=== PATIENT | male | born 1955 | race American Indian/Alaskan Native ===

== ENCOUNTER 2018-09-28 02:48 | Inpatient (IN) | payer MEDICARE, OTHER ==
[2018-09-28] MEDS ORDERED: SOLU-Medrol IV ONE (03:06)
[2018-09-28] MEDS ORDERED: BENADRYL PO ONE (03:06)
[2018-09-28] MEDS ORDERED: PEPCID IV ONE (03:06)
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
[2018-09-28 03:56] LABS: Basophils # (Auto) 0.1 K/mm3 (0.0-0.1); Basophils % (Auto) 1.8 % (0.0-1.8); Eosinophils # (Auto) 0.8 K/mm3 (0.0-0.4); Eosinophils % (Auto) 10.2 % (0.0-4.3); Hematocrit 37.6 % (35.5-45.6); Hemoglobin 12.6 gm/dl (11.8-15.2); Lymphocytes # (Auto) 3.4 K/mm3 (1.2-5.4); Lymphocytes % (Auto) 43.9 % (13.4-35.0); Mean Corpuscular HGB Conc 33 % (32-34); Mean Corpuscular Volume 89 fl (84-94); Monocytes # (Auto) 0.7 K/mm3 (0.0-0.8); Monocytes % (Auto) 9.1 % (0.0-7.3); Platelet Count 286 K/mm3 (140-440); Red Blood Count 4.22 M/mm3 (3.65-5.03); Red Cell Distribution Width 17.6 % (13.2-15.2)
[2018-09-28 04:09] LABS: Calcium 9.2 mg/dL (8.4-10.2)
--- NOTE | 2018-09-28 04:53 | History and Physical Report ---
<CHUANCEY ROSARIO - Last Filed: 09/28/18 05:11> History of Present Illness Date of examination: 09/28/18 Date of admission: 09/27/2018 Chief complaint: Lip swelling History of present illness: Patient is a 63-year-old male with PMHx of CVA, DM type 2, HTN, PAD, left hearing loss who presents to the ER with complaint of lip swelling. Pt states that he noted his face was swollen when he woke up around 9.0 PM tonight, pt states that he started taking Lisinopril 2 weeks ago and he was doing fine. Patient states that earlier in the evening he noticed his heart was racing, but he didn't notice his face and his lip swollen until aroound 9 pm. Patient reports difficulty speaking, he denies prior allergic reaction, he denies thighting of the throat, he denies SOB, denies cough, denies chest pain or palpitation, he states that he took Benadryl and decided to come to the ER for evaluation. Pt was se Past History Past Medical History: diabetes, hypertension Past Surgical History: Other (rifht finger amputation, right middle toe amp) Social history: lives with family, smoking Family history: no significant family history Medications and Allergies Allergies Allergy/AdvReac Type Severity Reaction Status Date / Time No Known Allergies Allergy Unverified 09/28/18 02:49 Home Medications Medication Instructions Recorded Confirmed Last Taken Type Ibuprofen [Motrin] 800 mg PO Q8HR PRN 09/28/18 09/28/18 Unknown History Lisinopril [Zestril] 5 mg PO QDAY 09/28/18 09/28/18 Unknown History Metformin HCl [metFORMIN] 1,000 mg PO QID 09/28/18 09/28/18 Unknown History Omeprazole 40 mg PO QDAY 09/28/18 09/28/18 Unknown History Rosuvastatin Calcium 40 mg PO QDAY 09/28/18 09/28/18 Unknown History hydroCHLOROthiazide [HCTZ] 50 mg PO QDAY 09/28/18 09/28/18 Unknown History Active Meds: Active Medications Enoxaparin Sodium (Lovenox) 30 mg SUB-Q QDAY ZONIA Review of Systems Ears, nose, mouth and throat: swelling in mouth Exam - Constitutional Vitals: Temp Pulse Resp BP Pulse Ox 97.7 F 105 H 18 104/63 96 09/28/18 02:52 09/28/18 02:52 09/28/18 02:52 09/28/18 03:45 09/28/18 03:45 General appearance: Present: no acute distress - EENT Eyes: Present: EOM intact ENT: hearing intact, other (left hearing loss) - Neck Neck: Present: supple, normal ROM - Respiratory Respiratory effort: normal Respiratory: bilateral: CTA - Cardiovascular Heart Sounds: Present: S1 & S2 - Extremities Extremities: no ischemia, No edema Peripheral Pulses: within normal limits - Abdominal General gastrointestinal: Present: non-tender, non-distended Male genitourinary: Present: deferred - Rectal Rectal Exam: deferred - Integumentary Integumentary: Present: warm, dry - Musculoskeletal Musculoskeletal: strength equal bilaterally - Psychiatric Psychiatric: cooperative - Neurologic Neurologic: moves all extremities Results - Labs CBC & Chem 7: 09/28/18 03:30 09/28/18 03:30 Labs: Laboratory Last Values WBC 7.7 K/mm3 (4.5-11.0) 09/28/18 03:30 RBC 4.22 M/mm3 (3.65-5.03) 09/28/18 03:30 Hgb 12.6 gm/dl (11.8-15.2) 09/28/18 03:30 Hct 37.6 % (35.5-45.6) 09/28/18 03:30 MCV 89 fl (84-94) 09/28/18 03:30 MCH 30 pg (28-32) 09/28/18 03:30 MCHC 33 % (32-34) 09/28/18 03:30 RDW 17.6 % (13.2-15.2) H 09/28/18 03:30 Plt Count 286 K/mm3 (140-440) 09/28/18 03:30 Lymph % (Auto) 43.9 % (13.4-35.0) H 09/28/18 03:30 [place] % (Auto) 9.1 % (0.0-7.3) H 09/28/18 03:30 Eos % (Auto) 10.2 % (0.0-4.3) H 09/28/18 03:30 Baso % (Auto) 1.8 % (0.0-1.8) 09/28/18 03:30 Lymph # 3.4 K/mm3 (1.2-5.4) 09/28/18 03:30 [place] # 0.7 K/mm3 (0.0-0.8) 09/28/18 03:30 Eos # 0.8 K/mm3 (0.0-0.4) H 09/28/18 03:30 Baso # 0.1 K/mm3 (0.0-0.1) 09/28/18 03:30 Seg Neutrophils % 35.0 % (40.0-70.0) L 09/28/18 03:30 Seg Neutrophils # 2.7 K/mm3 (1.8-7.7) 09/28/18 03:30 Sodium 139 mmol/L (137-145) 09/28/18 03:30 Potassium 4.3 mmol/L (3.6-5.0) 09/28/18 03:30 Chloride 105.1 mmol/L (98-107) 09/28/18 03:30 Carbon Dioxide 19 mmol/L (22-30) L 09/28/18 03:30 19 mmol/L 09/28/18 03:30 BUN 45 mg/dL (9-20) H 09/28/18 03:30 2.7 mg/dL (0.8-1.5) H 09/28/18 03:30 Estimated GFR 24 ml/min 09/28/18 03:30 17 % 09/28/18 03:30 Glucose 95 mg/dL (75-100) 09/28/18 03:30 Calcium 9.2 mg/dL (8.4-10.2) 09/28/18 03:30 Assessment and Plan Assessment and plan: 1. Acute allergic reaction 2. CVA with left sided seakness 3. DM type 2 4. HTN 5. PAD 6. left hearing loss Plan: Pt is admitted to surgical floor for acute allergic reaction Continue Solumedrol IV Q8hr Continue Pepsid BID Continue Benadryl PRN Resume home meds Futher plan per hospital course Pt might be DC today if condition remains stable Plan of care was d/w pt, voiced understanding Pt's condition and plan of care of care discussed with the attending Advance Directives: Yes VTE prophylaxis?: Mechanical Plan of care discussed with patient/family: Yes <MONREAL,MIRACLE E - Last Filed: 09/28/18 06:23> History of Present Illness Date of admission: 09/28/18 04:15 Medications and Allergies Active Meds: Active Medications Acetaminophen (Tylenol) 650 mg PO Q4H PRN PRN Reason: Pain MILD(1-3)/Fever >100.5/[place]OR[place]Z Diphenhydramine HCl (Benadryl) 25 mg IV Q8H PRN PRN Reason: Itching Enoxaparin Sodium (Lovenox) 30 mg SUB-Q QDAY ZONIA Famotidine (Pepcid) 20 mg IV QAM ZONIA Magnesium Hydroxide (Milk Of Magnesia) 30 ml PO Q4H PRN PRN Reason: Constipation Methylprednisolone Sodium Succinate (Solu-Medrol) 125 mg IV Q8HR ZONIA Ondansetron HCl (Zofran) 4 mg IV Q8H PRN PRN Reason: Nausea And Vomiting Sodium Chloride (Sodium Chloride Flush Syringe 10 Ml) 10 ml IV BID ZONIA Sodium Chloride (Sodium Chloride Flush Syringe 10 Ml) 10 ml IV PRN PRN PRN Reason: LINE FLUSH Exam - Constitutional Vitals: Temp Pulse Resp BP Pulse Ox 97.7 F 105 H 18 104/63 96 09/28/18 02:52 09/28/18 02:52 09/28/18 02:52 09/28/18 03:45 09/28/18 03:45 Results - Labs CBC & Chem 7: 09/28/18 03:30 09/28/18 03:30 Labs: Laboratory Last Values WBC 7.7 K/mm3 (4.5-11.0) 09/28/18 03:30 RBC 4.22 M/mm3 (3.65-5.03) 09/28/18 03:30 Hgb 12.6 gm/dl (11.8-15.2) 09/28/18 03:30 Hct 37.6 % (35.5-45.6) 09/28/18 03:30 MCV 89 fl (84-94) 09/28/18 03:30 MCH 30 pg (28-32) 09/28/18 03:30 MCHC 33 % (32-34) 09/28/18 03:30 RDW 17.6 % (13.2-15.2) H 09/28/18 03:30 Plt Count 286 K/mm3 (140-440) 09/28/18 03:30 Lymph % (Auto) 43.9 % (13.4-35.0) H 09/28/18 03:30 [place] % (Auto) 9.1 % (0.0-7.3) H 09/28/18 03:30 Eos % (Auto) 10.2 % (0.0-4.3) H 09/28/18 03:30 Baso % (Auto) 1.8 % (0.0-1.8) 09/28/18 03:30 Lymph # 3.4 K/mm3 (1.2-5.4) 09/28/18 03:30 [place] # 0.7 K/mm3 (0.0-0.8) 09/28/18 03:30 Eos # 0.8 K/mm3 (0.0-0.4) H 09/28/18 03:30 Baso # 0.1 K/mm3 (0.0-0.1) 09/28/18 03:30 Seg Neutrophils % 35.0 % (40.0-70.0) L 09/28/18 03:30 Seg Neutrophils # 2.7 K/mm3 (1.8-7.7) 09/28/18 03:30 Sodium 139 mmol/L (137-145) 09/28/18 03:30 Potassium 4.3 mmol/L (3.6-5.0) 09/28/18 03:30 Chloride 105.1 mmol/L (98-107) 09/28/18 03:30 Carbon Dioxide 19 mmol/L (22-30) L 09/28/18 03:30 19 mmol/L 09/28/18 03:30 BUN 45 mg/dL (9-20) H 09/28/18 03:30 2.7 mg/dL (0.8-1.5) H 09/28/18 03:30 Estimated GFR 24 ml/min 09/28/18 03:30 17 % 09/28/18 03:30 Glucose 95 mg/dL (75-100) 09/28/18 03:30 Calcium 9.2 mg/dL (8.4-10.2) 09/28/18 03:30 Assessment and Plan Assessment and plan: 63-year-old male with a history of hypertension, diabetes, peripheral vascular disease, CVA state that he ate some sardines, oysters with crackers and then developed swelling of his left upper lip. He is also on lisinopril. Patient with Angioedema, possible culprit as lisinopril, start IV fluids and check US kidneys for acute renal failure. Change steroids to every 6 frequency. Check fingersticks and initiate insulin sliding scale. Patient seen and examined, discussed with nurse practitioner
[2018-09-28] MEDS ORDERED: ZOFRAN IV PRN (05:05)
[2018-09-28] MEDS ORDERED: TYLENOL PO PRN (05:05)
[2018-09-28] MEDS ORDERED: SODIUM CHLORIDE FLUSH SYRINGE 10 ML IV PRN (05:05)
[2018-09-28] MEDS ORDERED: MILK OF MAGNESIA PO PRN (05:05)
[2018-09-28] MEDS ORDERED: BENADRYL IV PRN (05:08)
[2018-09-28] MEDS ORDERED: SOLU-Medrol IV SCH (06:00)
[2018-09-28] MEDS ORDERED: D50W (25GM) Syringe IV PRN (06:21)
[2018-09-28] MEDS ORDERED: IBUPROFEN PO PRN (06:47)
[2018-09-28] MEDS ORDERED: NACL 0.45% 1000 ML 1,000 ML IV SCH (07:00)
--- NOTE | 2018-09-28 09:36 | Ultrasound Report ---
ULTRASOUND RENAL INDICATION: Renal failure COMPARISON: No relevant prior imaging study available. FINDINGS: RIGHT KIDNEY: Size: 10.0 cm. Echogenicity: Normal. Cortical thickness: Normal. Stones: None. Hydronephrosis: None. Cyst or mass: None. LEFT KIDNEY: Size: 10.1 cm. Echogenicity: Normal. Cortical thickness: Normal. Stones: None. Hydronephrosis: None. Cyst or mass: None. Urinary Bladder: No significant abnormality. Free Fluid: None. Additional Findings: None. IMPRESSION: No acute sonographic abnormality of the kidneys Signer Name: Ceasar Negro MD Signed: 09/28/2018 9:32 AM Workstation Name: [id number]
[2018-09-28] MEDS ORDERED: ZESTRIL PO SCH (10:00)
[2018-09-28] MEDS ORDERED: NON-FORMULARY (Omeprazole [Omeprazole] 40 MG) PO SCH (10:00)
[2018-09-28] MEDS ORDERED: PEPCID IV SCH (10:00)
[2018-09-28] MEDS ORDERED: NON-FORMULARY (Metformin Hcl [Metformin] 1,000 MG) PO SCH (10:00)
[2018-09-28] MEDS ORDERED: NON-FORMULARY (Rosuvastatin Calcium [Rosuvastatin Calcium] 40 MG) PO SCH (10:00)
[2018-09-28] MEDS ORDERED: HCTZ PO SCH (10:00)
[2018-09-28] MEDS: LOVENOX SUB-Q SCH (10:20)
[2018-09-28] MEDS: PROTONIX PO SCH (10:20)
[2018-09-28] MEDS ORDERED: PNEUMOVAX 23 IM ONE (12:00)
--- NOTE | 2018-09-28 12:14 | Progress Note ---
Assessment and Plan Assessment and plan: Angioedema/allergic reaction. We will place lisinopril on patient's drug allergy list. Continue steroids, Pepcid and Benadryl. Acute renal failure. We do not have a baseline creatinine to compare. Etiology likely secondary to dehydration/vasomotor nephropathy. IV fluid of normal saline. Check renal ultrasound. Consider nephrology consultation if no improvement with IV fluids. Check urinalysis. Diabetes mellitus type 2. Continue Accu-Cheks and sliding scale insulin. Hypertension. Continue antihypertensive medications. PAD. Left hearing loss. History Interval history: No new issues overnight. Patient denies any history of kidney disease. Hospitalist Physical - Constitutional Vitals: Temp Pulse Resp BP Pulse Ox 97.7 F 105 H 18 119/66 95 09/28/18 02:52 09/28/18 02:52 09/28/18 03:40 09/28/18 06:15 09/28/18 06:15 General appearance: Present: no acute distress - EENT Eyes: Present: PERRL, EOM intact ENT: hearing intact, clear oral mucosa, dentition normal - Neck Neck: Present: supple, normal ROM - Respiratory Respiratory effort: normal Respiratory: bilateral: CTA - Cardiovascular Rhythm: regular Heart Sounds: Present: S1 & S2. Absent: gallop, rub - Extremities Extremities: no ischemia, No edema, Full ROM - Abdominal General gastrointestinal: soft, non-tender, non-distended, normal bowel sounds - Integumentary Integumentary: Present: clear, warm, dry - Neurologic Neurologic: CNII-XII intact, moves all extremities Results - Labs CBC & Chem 7: 09/28/18 03:30 09/28/18 03:30 Labs: Laboratory Last Values WBC 7.7 K/mm3 (4.5-11.0) 09/28/18 03:30 RBC 4.22 M/mm3 (3.65-5.03) 09/28/18 03:30 Hgb 12.6 gm/dl (11.8-15.2) 09/28/18 03:30 Hct 37.6 % (35.5-45.6) 09/28/18 03:30 MCV 89 fl (84-94) 09/28/18 03:30 MCH 30 pg (28-32) 09/28/18 03:30 MCHC 33 % (32-34) 09/28/18 03:30 RDW 17.6 % (13.2-15.2) H 09/28/18 03:30 Plt Count 286 K/mm3 (140-440) 09/28/18 03:30 Lymph % (Auto) 43.9 % (13.4-35.0) H 09/28/18 03:30 [place] % (Auto) 9.1 % (0.0-7.3) H 09/28/18 03:30 Eos % (Auto) 10.2 % (0.0-4.3) H 09/28/18 03:30 Baso % (Auto) 1.8 % (0.0-1.8) 09/28/18 03:30 Lymph # 3.4 K/mm3 (1.2-5.4) 09/28/18 03:30 [place] # 0.7 K/mm3 (0.0-0.8) 09/28/18 03:30 Eos # 0.8 K/mm3 (0.0-0.4) H 09/28/18 03:30 Baso # 0.1 K/mm3 (0.0-0.1) 09/28/18 03:30 Seg Neutrophils % 35.0 % (40.0-70.0) L 09/28/18 03:30 Seg Neutrophils # 2.7 K/mm3 (1.8-7.7) 09/28/18 03:30 Sodium 139 mmol/L (137-145) 09/28/18 03:30 Potassium 4.3 mmol/L (3.6-5.0) 09/28/18 03:30 Chloride 105.1 mmol/L (98-107) 09/28/18 03:30 Carbon Dioxide 19 mmol/L (22-30) L 09/28/18 03:30 19 mmol/L 09/28/18 03:30 BUN 45 mg/dL (9-20) H 09/28/18 03:30 2.7 mg/dL (0.8-1.5) H 09/28/18 03:30 Estimated GFR 24 ml/min 09/28/18 03:30 17 % 09/28/18 03:30 Glucose 95 mg/dL (75-100) 09/28/18 03:30 Calcium 9.2 mg/dL (8.4-10.2) 09/28/18 03:30 Active Medications - Current Medications Current Medications: Generic Name Dose Route Start Last Admin Trade Name Freq PRN Reason Stop Dose Admin Acetaminophen 650 mg 09/28/18 05:05 Tylenol PO Q4H PRN Pain MILD(1-3)/Fever >100.5/[place]Z Atorvastatin Calcium 40 mg 09/28/18 22:00 Lipitor PO QHS ZONIA Dextrose 50 ml 09/28/18 06:21 D50w (25gm) Syringe IV PRN PRN Hypoglycemia Diphenhydramine HCl 25 mg 09/28/18 05:08 Benadryl IV Q8H PRN Itching Enoxaparin Sodium 30 mg 09/28/18 10:00 09/28/18 10:20 Lovenox SUB-Q 30 mg QDAY ZONIA Administration Hydrochlorothiazide 50 mg 09/28/18 10:00 09/28/18 10:20 Hctz PO 50 mg QDAY ZONIA Administration Sodium Chloride 1,000 mls @ 125 mls/hr 09/28/18 07:00 Nacl 0.45% 1000 Ml IV DIRECT [facility] Ibuprofen 800 mg 09/28/18 06:47 Ibuprofen PO Q8H PRN Pain, Moderate (4-6) Insulin Human Lispro 0 unit 09/28/18 12:00 Humalog SUB-Q Q6HR [facility] Protocol Lisinopril 5 mg 09/28/18 10:00 09/28/18 10:20 Zestril PO 5 mg QDAY [facility] Administration Magnesium Hydroxide 30 ml 09/28/18 05:05 Milk Of Magnesia PO Q4H PRN Constipation Methylprednisolone Sodium Succinate 125 mg 09/28/18 12:00 Solu-Medrol IV Q6HR [facility] Miscellaneous Medication 1,000 mg 09/28/18 10:00 Metformin Hcl [Metformin] PO QID ZONIA Ondansetron HCl 4 mg 09/28/18 05:05 Zofran IV Q8H PRN Nausea And Vomiting Pantoprazole Sodium 40 mg 09/28/18 10:00 09/28/18 10:20 Protonix PO 40 mg DAILY ZONIA Administration Sodium Chloride 10 ml 09/28/18 10:00 Sodium Chloride Flush Syringe 10 Ml IV BID ZONIA Sodium Chloride 10 ml 09/28/18 05:05 Sodium Chloride Flush Syringe 10 Ml IV PRN PRN LINE FLUSH
--- NOTE | 2018-09-28 12:47 | Consultation ---
History of Present Illness - History of Present Illness 63 year old with longstanding history of DM type II , HTN, Previous CVA x 2 admitted with complaints of facial swelling that began the day before. he is on lisinopril for HTN . He only recently started taking lisinopril . He denies any associated shortness of breath, orthopnea or PND. He denies any abdominal pain, nausea, vomitting. He denies any diarrhoea.He reports signficant NSAID use with ibuprofen twice daily for a while. Lisinopril started 3 weeks ago. He has upper lip swelling. He denies any recurrent urinary tract infection or kidney stones. He denies any knowledge of kidney disease. Past History Past Medical History: diabetes, hypertension Past Surgical History: Other (rifht finger amputation, right middle toe amp) Social history: lives with family, smoking Family history: no significant family history Medications and Allergies Allergies Allergy/AdvReac Type Severity Reaction Status Date / Time ADRI Inhibitors Allergy Angioedema Verified 09/28/18 13:00 Home Medications Medication Instructions Recorded Confirmed Last Taken Type Ibuprofen [Motrin] 800 mg PO Q8HR PRN 09/28/18 09/28/18 Unknown History Lisinopril [Zestril] 5 mg PO QDAY 09/28/18 09/28/18 Unknown History Metformin HCl [metFORMIN] 1,000 mg PO QID 09/28/18 09/28/18 Unknown History Omeprazole 40 mg PO QDAY 09/28/18 09/28/18 Unknown History Rosuvastatin Calcium 40 mg PO QDAY 09/28/18 09/28/18 Unknown History hydroCHLOROthiazide [HCTZ] 50 mg PO QDAY 09/28/18 09/28/18 Unknown History Active Meds: Active Medications Acetaminophen (Tylenol) 650 mg PO Q4H PRN PRN Reason: Pain MILD(1-3)/Fever >100.5/[place] Atorvastatin Calcium (Lipitor) 40 mg PO QHS [facility] Dextrose (D50w (25gm) Syringe) 50 ml IV PRN PRN PRN Reason: Hypoglycemia Diphenhydramine HCl (Benadryl) 25 mg IV Q8H PRN PRN Reason: Itching Enoxaparin Sodium (Lovenox) 30 mg SUB-Q QDAY [facility] Last Admin: 09/28/18 10:20 Dose: 30 mg Documented by: Hydrochlorothiazide (Hctz) 50 mg PO QDAY [facility] Last Admin: 09/28/18 10:20 Dose: 50 mg Documented by: Sodium Chloride (Nacl 0.45% 1000 Ml) 1,000 mls @ 125 mls/hr IV DIRECT ZONIA Sodium Chloride (Nacl 0.9% 1000 Ml) 1,000 mls @ 100 mls/hr IV DIRECT [facility] Ibuprofen (Ibuprofen) 800 mg PO Q8H PRN PRN Reason: Pain, Moderate (4-6) Insulin Human Lispro (Humalog) 0 unit SUB-Q Q6HR [facility]; Protocol Lisinopril (Zestril) 5 mg PO QDAY [facility] Last Admin: 09/28/18 10:20 Dose: 5 mg Documented by: Magnesium Hydroxide (Milk Of Magnesia) 30 ml PO Q4H PRN PRN Reason: Constipation Methylprednisolone Sodium Succinate (Solu-Medrol) 125 mg IV Q6HR [facility] Miscellaneous Medication (Metformin Hcl [Metformin]) 1,000 mg PO QID [facility] Ondansetron HCl (Zofran) 4 mg IV Q8H PRN PRN Reason: Nausea And Vomiting Pantoprazole Sodium (Protonix) 40 mg PO DAILY [facility] Last Admin: 09/28/18 10:20 Dose: 40 mg Documented by: Sodium Chloride (Sodium Chloride Flush Syringe 10 Ml) 10 ml IV BID [facility] Sodium Chloride (Sodium Chloride Flush Syringe 10 Ml) 10 ml IV PRN PRN PRN Reason: LINE FLUSH Review of Systems Constitutional: no weight loss, no weight gain Ears, nose, mouth and throat: swelling in mouth, no deferred, no ear pain Cardiovascular: no chest pain, no orthopnea Respiratory: no cough, no cough with sputum Gastrointestinal: no abdominal pain, no nausea, no vomiting Genitourinary Male: no dysuria, no hematuria Musculoskeletal: shooting leg pain, limitation of motion Integumentary: no deferred, no rash Neurological: no head injury, no transient paralysis Psychiatric: no anxiety, no memory loss Endocrine: no cold intolerance, no heat intolerance Hematologic/Lymphatic: no easy bruising, no easy bleeding Allergic/Immunologic: no urticaria Exam - Vital Signs Vital signs: Vital Signs Temp Pulse Resp BP Pulse Ox 97.7 F 96 H 18 145/79 97 09/28/18 02:49 09/28/18 02:49 09/28/18 02:49 09/28/18 02:49 09/28/18 02:49 - General Appearance General appearance: well-developed, well-nourished EENT: ATNC, PERRL Neck: Present: neck supple Respiratory: Clear to Ascultation, Increased Expir. Phase Heart: regular, S1S2 Gastrointestinal: Present: normal, normoactive bowel sounds Integumentary: no rash Neurologic: alert and oriented x3, other (right sided weakness. ) Musculoskeletal: Present: other (digit amputation. ). Absent: clubbing Results - Lab Results 09/28/18 03:30 09/28/18 03:30 Most recent lab results Calcium 9.2 mg/dL (8.4-10.2) 09/28/18 03:30 - Image Kidney/bladder ultrasound: image reviewed (i reviewed renal US with normal size kidneys without hydronephrosis) Assessment and Plan - Patient Problems (1) Acute kidney injury Current Visit: Yes Status: Acute Plan to address problem: Acute kidney injury versus CKD - associated acidosis noted -I reviewed renal US with normal sized kidneys without hydronephrosis - need to obtain records - obtain serologies - check PTH , - Will add IVF for now bicarb infusion @100cc/hr -check CXR -obtain urine studies. - avoid nephrotoxins -Discontinue Ibuprofen and Lisinopril. (2) Metabolic acidosis Current Visit: Yes Status: Acute Plan to address problem: Metabolic acidosis -check lactate and ketones -also underlying renal disease. bicarb infusion for now. (3) Angioedema Current Visit: Yes Status: Acute Plan to address problem: Angioedema - was on lisinopril - likely 2/2 ADRI Inhibitor -Discontinue ACEI - continue steroids , antihistamines Benadryl , PPI , monitor airway (4) HTN (hypertension) Current Visit: Yes Status: Acute Qualifiers: Hypertension type: essential hypertension Qualified Code(s): I10 - Essential (primary) hypertension Plan to address problem: HTN; was on lisinopril given concern for angioedema Discontinue lisinopril can add metoprolol 25mg daily instead if HTN persists.
[2018-09-28] MEDS: HumaLOG SUB-Q SCH ×2 (12:50→17:37)
[2018-09-28] MEDS ORDERED: NACL 0.9% 1000 ML 1,000 ML IV SCH (13:00)
[2018-09-28] MEDS: SOLU-Medrol IV SCH ×2 (14:11→17:33)
[2018-09-28] MEDS: SODIUM CHLORIDE FLUSH SYRINGE 10 ML IV SCH ×2 (14:12→22:32)
--- NOTE | 2018-09-28 15:08 | XRay Report ---
CHEST 1 VIEW [id number] INDICATION / CLINICAL INFORMATION: [email or web address]. COMPARISON: None available. FINDINGS: SUPPORT DEVICES: None HEART / MEDIASTINUM: No significant abnormality. LUNGS / PLEURA: Mild chronic appearing changes are seen in the lung hedrick. No areas of consolidation are noted. No pneumothorax. ADDITIONAL FINDINGS: No significant additional findings. IMPRESSION: No significant acute abnormality Signer Name: Ceasar Negro MD Signed: 09/28/2018 3:03 PM Workstation Name: [id number]
[2018-09-28 19:17] LABS: Bacteria,Urine 1+ /HPF (Negative); Bilirubin,Urine NEG (Negative); Blood,Urine SM (Negative); Color,Urine Yellow (Yellow); RBC,Urine < 1.0 /HPF (0.0-6.0); Urobilinogen,Urine < 2.0 mg/dL (<2.0)
[2018-09-28 19:25] LABS: Creatinine,Urine 99.4 mg/dL (0.1-20.0); Protein/Creatinine Ratio,Urine 0.64
[2018-09-29] MEDS: HumaLOG SUB-Q SCH ×5 (00:56→21:59)
[2018-09-29] MEDS: SOLU-Medrol IV SCH ×5 (00:57→23:02)
[2018-09-29] MEDS: SODIUM BICARBONATE 150 MEQ in D5W 1,000 ML IV SCH ×2 (00:59→21:58)
[2018-09-29 05:56] LABS: Basophils % (Auto) 0.2 % (0.0-1.8); Hematocrit 35.2 % (35.5-45.6); Hemoglobin 11.7 gm/dl (11.8-15.2); Lymphocytes # (Auto) 1.1 K/mm3 (1.2-5.4); Lymphocytes % (Auto) 14.9 % (13.4-35.0); Mean Corpuscular HGB Conc 33 % (32-34); Mean Corpuscular Volume 89 fl (84-94); Monocytes # (Auto) 0.3 K/mm3 (0.0-0.8); Monocytes % (Auto) 4.5 % (0.0-7.3); Platelet Count 267 K/mm3 (140-440); Red Blood Count 3.98 M/mm3 (3.65-5.03); Red Cell Distribution Width 17.4 % (13.2-15.2)
[2018-09-29 06:15] LABS: Calcium 9.5 mg/dL (8.4-10.2)
--- NOTE | 2018-09-29 09:27 | Progress Note ---
Subjective Interval history: Patient was seen today for follow-up on multiple renal related issues Events of this hospitalization noted Renal function continues to improve Patient denies having any chest pain pressure or shortness of breath Vitals labs intake output medications were reviewed Social history: Reviewed Allergies: Reviewed Family history: Reviewed Physical examination HEENT: Oral mucosa moist no pallor or icterus Lip swelling noted Neck: Supple no JVD Chest: Clear to auscultation anteriorly CVS: Regular rate and rhythm S1 and S2 heard Abdomen: Soft nontender no suprapubic masses no organomegaly appreciable Extremity: Dry skin less than 1+ peripheral edema Musculoskeletal: No joint effusion noted in knees and ankle Neurological: Alert awake Dermatology: No petechial rashes Psychiatry: No evidence of any agitation and aggression noted Assessment and plan; Acute renal failure likely creatinine is currently improving: Around 2.0 , patient was taking ibuprofen lisinopril as well as metformin and hydrochlorothiazide in the outpatient setting Renal ultrasonogram: Shows normal-appearing kidney Urinalysis shows only 30 mg protein no red blood cells protein creatinine ratio 0.64 gram These medication should be avoided for now in general Was also taking proton pump inhibitor which can also cause drug-induced and soc ial nephritis and hence should be avoided or substituted with Pepcid 20 mg once a day, Need to also consider and rule out renal artery stenosis given the age and renal failure with lisinopril Metabolic acidosis currently better at 23 of bicarbonate Mild anemia: To monitor and follow hemoglobin is 11.7 Eosinophilia percentage was 10.2? Today 0 Patient is likely ADRI allergic and hence would avoid any form of ADRI inhibitor as well as angiotensin receptor luis antonio Patient was started on lisinopril nearly 3 weeks ago and noted to have upper lip swelling Multiple underlying comorbidities including diabetes, hypertension, CVA, Adequately counseled and educated regarding multiple renal related issues Patient was adequately counseled and educated regarding multiple renal related issues Pertinent lab findings were discussed with patient and patient does exhibit good understanding of renal issues. We'll continue to follow and make recommendation from renal standpoint Objective - Vital Signs Vital signs: Vital Signs - 12hr 09/29/18 09/29/18 09/29/18 00:14 00:34 03:43 Temperature 97.8 F 97.4 F L Pulse Rate 88 85 Respiratory 18 20 Rate Blood Pressure 109/70 158/85 O2 Sat by Pulse 90 97 96 Oximetry 09/29/18 07:44 Temperature 98.3 F Pulse Rate Respiratory 18 Rate Blood Pressure 161/79 O2 Sat by Pulse Oximetry - Lab 09/29/18 04:56 09/29/18 04:56 Most recent lab results Calcium 9.5 mg/dL (8.4-10.2) 09/29/18 04:56 99.4 mg/dL (0.1-20.0) H 09/28/18 16:21 64 mg/dL (5-11.8) H 09/28/18 16:21 Medications & Allergies - Medications Allergies/Adverse Reactions: Allergies ADRI Inhibitors Allergy (Verified 09/28/18 13:00) Angioedema DISCONTINUE HOME MED LISINOPRIL DUE TO ANGIOEDEMA Home Medications: Home Medications Medication Instructions Recorded Confirmed Last Taken Type Ibuprofen [Motrin] 800 mg PO Q8HR PRN 09/28/18 09/28/18 Unknown History Lisinopril [Zestril] 5 mg PO QDAY 09/28/18 09/28/18 Unknown History Metformin HCl [metFORMIN] 1,000 mg PO QID 09/28/18 09/28/18 Unknown History Omeprazole 40 mg PO QDAY 09/28/18 09/28/18 Unknown History Rosuvastatin Calcium 40 mg PO QDAY 09/28/18 09/28/18 Unknown History hydroCHLOROthiazide [HCTZ] 50 mg PO QDAY 09/28/18 09/28/18 Unknown History Active Medications: Generic Name Dose Route Start Last Admin Trade Name Freq PRN Reason Stop Dose Admin Acetaminophen 650 mg 09/28/18 05:05 Tylenol PO Q4H PRN Pain MILD(1-3)/Fever >100.5/HOROWITZ Atorvastatin Calcium 40 mg 09/28/18 22:00 09/28/18 22:27 Lipitor PO 40 mg QHS ZONIA Administration Dextrose 50 ml 09/28/18 06:21 D50w (25gm) Syringe IV PRN PRN Hypoglycemia Diphenhydramine HCl 25 mg 09/28/18 05:08 Benadryl IV Q8H PRN Itching Enoxaparin Sodium 30 mg 09/28/18 10:00 09/28/18 10:20 Lovenox SUB-Q 30 mg QDAY ZONIA Administration Sodium Bicarbonate 150 meq/ 1,150 mls @ 100 mls/hr 09/28/18 14:00 09/29/18 00:59 Dextrose IV 100 mls/hr DIRECT ZONIA Administration Insulin Human Lispro 0 unit 09/29/18 07:30 Humalog SUB-Q ACHS ZONIA Protocol Magnesium Hydroxide 30 ml 09/28/18 05:05 Milk Of Magnesia PO Q4H PRN Constipation Methylprednisolone Sodium Succinate 125 mg 09/28/18 12:00 09/29/18 05:48 Solu-Medrol IV 125 mg Q6HR ZONIA Administration Ondansetron HCl 4 mg 09/28/18 05:05 Zofran IV Q8H PRN Nausea And Vomiting Pantoprazole Sodium 40 mg 09/28/18 10:00 09/28/18 10:20 Protonix PO 40 mg DAILY ZONIA Administration Sodium Chloride 10 ml 09/28/18 10:00 09/28/18 22:32 Sodium Chloride Flush Syringe 10 Ml IV 10 ml BID ZONIA Administration Sodium Chloride 10 ml 09/28/18 05:05 Sodium Chloride Flush Syringe 10 Ml IV PRN PRN LINE FLUSH
[2018-09-29] MEDS: PROTONIX PO SCH (10:42)
[2018-09-29] MEDS: LOVENOX SUB-Q SCH (10:43)
[2018-09-29] MEDS: SODIUM CHLORIDE FLUSH SYRINGE 10 ML IV SCH ×2 (10:44→21:58)
--- NOTE | 2018-09-29 11:51 | Progress Note ---
Assessment and Plan Assessment and plan: Angioedema/allergic reaction. We will place lisinopril on patient's drug allergy list. Continue steroids, Pepcid and Benadryl. Acute renal failure. We do not have a baseline creatinine to compare. Etiology likely secondary to dehydration/vasomotor nephropathy. IV fluid of normal saline. Renal ultrasonogram: Shows normal-appearing kidney. Diabetes mellitus type 2. Continue Accu-Cheks and sliding scale insulin. Hypertension. Continue antihypertensive medications. PAD. Left hearing loss. History Interval history: No new issues overnight. Patient denies any history of kidney disease. Hospitalist Physical - Constitutional Vitals: Temp Pulse Resp BP Pulse Ox 98.3 F 85 18 161/79 96 09/29/18 07:44 09/29/18 03:43 09/29/18 07:44 09/29/18 07:44 09/29/18 03:43 General appearance: Present: no acute distress - EENT Eyes: Present: PERRL, EOM intact ENT: hearing intact, clear oral mucosa, dentition normal - Neck Neck: Present: supple, normal ROM - Respiratory Respiratory effort: normal Respiratory: bilateral: CTA - Cardiovascular Rhythm: regular Heart Sounds: Present: S1 & S2. Absent: gallop, rub - Extremities Extremities: no ischemia, No edema, Full ROM - Abdominal General gastrointestinal: soft, non-tender, non-distended, normal bowel sounds - Integumentary Integumentary: Present: clear, warm, dry - Neurologic Neurologic: CNII-XII intact, moves all extremities Results - Labs CBC & Chem 7: 09/29/18 04:56 09/29/18 04:56 Labs: Laboratory Last Values WBC 7.4 K/mm3 (4.5-11.0) 09/29/18 04:56 RBC 3.98 M/mm3 (3.65-5.03) 09/29/18 04:56 Hgb 11.7 gm/dl (11.8-15.2) L 09/29/18 04:56 Hct 35.2 % (35.5-45.6) L 09/29/18 04:56 MCV 89 fl (84-94) 09/29/18 04:56 MCH 29 pg (28-32) 09/29/18 04:56 MCHC 33 % (32-34) 09/29/18 04:56 RDW 17.4 % (13.2-15.2) H 09/29/18 04:56 Plt Count 267 K/mm3 (140-440) 09/29/18 04:56 Lymph % (Auto) 14.9 % (13.4-35.0) 09/29/18 04:56 [place] % (Auto) 4.5 % (0.0-7.3) 09/29/18 04:56 Eos % (Auto) 0.0 % (0.0-4.3) 09/29/18 04:56 Baso % (Auto) 0.2 % (0.0-1.8) 09/29/18 04:56 Lymph # 1.1 K/mm3 (1.2-5.4) L 09/29/18 04:56 [place] # 0.3 K/mm3 (0.0-0.8) 09/29/18 04:56 Eos # 0.0 K/mm3 (0.0-0.4) 09/29/18 04:56 Baso # 0.0 K/mm3 (0.0-0.1) 09/29/18 04:56 Seg Neutrophils % 80.4 % (40.0-70.0) H 09/29/18 04:56 Seg Neutrophils # 5.9 K/mm3 (1.8-7.7) 09/29/18 04:56 Sodium 138 mmol/L (137-145) 09/29/18 04:56 Potassium 4.5 mmol/L (3.6-5.0) 09/29/18 04:56 Chloride 102.3 mmol/L (98-107) 09/29/18 04:56 Carbon Dioxide 23 mmol/L (22-30) 09/29/18 04:56 17 mmol/L 09/29/18 04:56 BUN 39 mg/dL (9-20) H 09/29/18 04:56 2.0 mg/dL (0.8-1.5) H 09/29/18 04:56 Estimated GFR 41 ml/min 09/29/18 04:56 20 % 09/29/18 04:56 Glucose 131 mg/dL (75-100) H 09/29/18 04:56 POC Glucose 198 (70-105) H 09/29/18 07:46 Calcium 9.5 mg/dL (8.4-10.2) 09/29/18 04:56 PTH Intact 51.30 pg/mL (15-65) 09/28/18 13:26 Yellow (Yellow) 09/28/18 16:21 Clear (Clear) 09/28/18 16:21 6.0 (5.0-7.0) 09/28/18 16:21 Ur Specific [place] 1.015 (1.003-1.030) 09/28/18 16:21 30 mg/dl mg/dL (Negative) 09/28/18 16:21 Neg mg/dL (Negative) 09/28/18 16:21 Neg mg/dL (Negative) 09/28/18 16:21 Sm (Negative) 09/28/18 16:21 Neg (Negative) 09/28/18 16:21 Neg (Negative) 09/28/18 16:21 < 2.0 mg/dL (<2.0) 09/28/18 16:21 Ur Leukocyte Esterase Neg (Negative) 09/28/18 16:21 2.0 /HPF (0.0-6.0) 09/28/18 16:21 < 1.0 /HPF (0.0-6.0) 09/28/18 16:21 U Epithel Cells (Auto) < 1.0 /HPF (0-13.0) 09/28/18 16:21 1+ /HPF (Negative) 09/28/18 16:21 99.4 mg/dL (0.1-20.0) H 09/28/18 16:21 Protein/Creatinin Ratio 0.64 09/28/18 16:21 64 mg/dL (5-11.8) H 09/28/18 16:21 Hep Bs Antigen Non-reactive (Negative) 09/28/18 13:26 Non-reactive (NonReactive) 09/28/18 13:26 Active Medications - Current Medications Current Medications: Generic Name Dose Route Start Last Admin Trade Name Freq PRN Reason Stop Dose Admin Acetaminophen 650 mg 09/28/18 05:05 Tylenol PO Q4H PRN Pain MILD(1-3)/Fever >100.5/HOROWITZ Atorvastatin Calcium 40 mg 09/28/18 22:00 09/28/18 22:27 Lipitor PO 40 mg QHS ZONIA Administration Dextrose 50 ml 09/28/18 06:21 D50w (25gm) Syringe IV PRN PRN Hypoglycemia Diphenhydramine HCl 25 mg 09/28/18 05:08 Benadryl IV Q8H PRN Itching Enoxaparin Sodium 30 mg 09/28/18 10:00 09/29/18 10:43 Lovenox SUB-Q 30 mg QDAY ZONIA Administration Sodium Bicarbonate 150 meq/ 1,150 mls @ 100 mls/hr 09/28/18 14:00 09/29/18 00:59 Dextrose IV 100 mls/hr DIRECT ZONIA Administration Insulin Human Lispro 0 unit 09/29/18 07:30 09/29/18 10:43 Humalog SUB-Q 3 unit ACHS ZONIA Administration Protocol Magnesium Hydroxide 30 ml 09/28/18 05:05 Milk Of Magnesia PO Q4H PRN Constipation Methylprednisolone Sodium Succinate 125 mg 09/28/18 12:00 09/29/18 11:43 Solu-Medrol IV 125 mg Q6HR ZONIA Administration Ondansetron HCl 4 mg 09/28/18 05:05 Zofran IV Q8H PRN Nausea And Vomiting Pantoprazole Sodium 40 mg 09/28/18 10:00 09/29/18 10:42 Protonix PO 40 mg DAILY ZONIA Administration Sodium Chloride 10 ml 09/28/18 10:00 09/29/18 10:44 Sodium Chloride Flush Syringe 10 Ml IV 10 ml BID ZONIA Administration Sodium Chloride 10 ml 09/28/18 05:05 Sodium Chloride Flush Syringe 10 Ml IV PRN PRN LINE FLUSH
[2018-09-30] MEDS: SOLU-Medrol IV SCH ×2 (06:08→11:37)
[2018-09-30 06:34] LABS: Basophils # (Auto) 0.1 K/mm3 (0.0-0.1); Basophils % (Auto) 0.7 % (0.0-1.8); Hematocrit 37.2 % (35.5-45.6); Hemoglobin 12.3 gm/dl (11.8-15.2); Lymphocytes # (Auto) 1.3 K/mm3 (1.2-5.4); Lymphocytes % (Auto) 12.5 % (13.4-35.0); Mean Corpuscular HGB Conc 33 % (32-34); Mean Corpuscular Volume 89 fl (84-94); Monocytes # (Auto) 0.4 K/mm3 (0.0-0.8); Monocytes % (Auto) 3.6 % (0.0-7.3); Platelet Count 285 K/mm3 (140-440); Red Blood Count 4.18 M/mm3 (3.65-5.03); Red Cell Distribution Width 17.1 % (13.2-15.2)
[2018-09-30 06:55] LABS: Calcium 9.4 mg/dL (8.4-10.2)
[2018-09-30 08:39] VITALS: BP 147/82
--- NOTE | 2018-09-30 09:03 | Progress Note ---
Subjective Interval history: Patient was seen today for follow-up on multiple renal related issues Events of this hospitalization noted Renal function continues to improve Patient denies having any chest pain pressure or shortness of breath Vitals labs intake output medications were reviewed Social history: Reviewed Allergies: Reviewed Family history: Reviewed Physical examination HEENT: Oral mucosa moist no pallor or icterus Lip swelling noted Neck: Supple no JVD Chest: Clear to auscultation anteriorly CVS: Regular rate and rhythm S1 and S2 heard Abdomen: Soft nontender no suprapubic masses no organomegaly appreciable Extremity: Dry skin less than 1+ peripheral edema Musculoskeletal: No joint effusion noted in knees and ankle Neurological: Alert awake Dermatology: No petechial rashes Psychiatry: No evidence of any agitation and aggression noted Assessment and plan; Acute kidney injury, renal function continues to improve current creatinine around 1.9 it is quite possible that patient may have underlying chronic kidney disease possibly stage III from renal standpoint he appears to be stable he can be followed up in the clinic in outpatient setting Possibility of renal artery stenosis cannot be ruled out and hence will order a vascular Doppler for him for the renal arteries, he will need to make a follow- up appointment in the outpatient setting for that Blood pressure is satisfactorily controlled at this time Allergic to ADRI inhibitor would like to avoid the blood pressure remains difficult to control be may consider using spironolactone with caution in outpatient setting Admitted with angioedema-like picture this can be seen any time during the course of therapy with ADRI inhibitor usually within the first year and the cross-reactivity with angiotensin receptor luis antonio is usually less than 10% Renal ultrasonogram: Shows normal-appearing kidney, patient still has high likelihood of renovascular disease Urinalysis shows only 30 mg protein no red blood cells protein creatinine ratio 0.64 gram These medication should be avoided for now in general Was also taking proton pump inhibitor which can also cause drug-induced and social nephritis and hence should be avoided or substituted with Pepcid 20 mg once a day, Need to also consider and rule out renal artery stenosis given the age and renal failure with lisinopril Metabolic acidosis currently better at 23 of bicarbonate Mild anemia: To monitor and follow hemoglobin is 11.7 Eosinophilia percentage was 10.2 Patient is likely ADRI allergic and hence would avoid any form of ADRI inhibitor as well as angiotensin receptor luis antonio Patient was started on lisinopril nearly 3 weeks ago and noted to have upper lip swelling Multiple underlying comorbidities including diabetes, hypertension, CVA, We'll continue to follow and make recommendation from renal standpoint Objective - Vital Signs Vital signs: Vital Signs - 12hr 09/29/18 09/30/18 09/30/18 23:08 03:32 08:19 Temperature 99.4 F 98.2 F 97.2 F L Pulse Rate 91 H 59 L 73 Respiratory 16 16 16 Rate Blood Pressure 147/82 141/62 147/82 O2 Sat by Pulse 93 95 98 Oximetry - Lab 09/30/18 06:13 09/30/18 06:13 Most recent lab results Calcium 9.4 mg/dL (8.4-10.2) 09/30/18 06:13 99.4 mg/dL (0.1-20.0) H 09/28/18 16:21 64 mg/dL (5-11.8) H 09/28/18 16:21 Medications & Allergies - Medications Allergies/Adverse Reactions: Allergies ADRI Inhibitors Allergy (Verified 09/28/18 13:00) Angioedema DISCONTINUE HOME MED LISINOPRIL DUE TO ANGIOEDEMA Home Medications: Home Medications Medication Instructions Recorded Confirmed Last Taken Type Ibuprofen [Motrin] 800 mg PO Q8HR PRN 09/28/18 09/28/18 Unknown History Lisinopril [Zestril] 5 mg PO QDAY 09/28/18 09/28/18 Unknown History Metformin HCl [metFORMIN] 1,000 mg PO QID 09/28/18 09/28/18 Unknown History Omeprazole 40 mg PO QDAY 09/28/18 09/28/18 Unknown History Rosuvastatin Calcium 40 mg PO QDAY 09/28/18 09/28/18 Unknown History hydroCHLOROthiazide [HCTZ] 50 mg PO QDAY 09/28/18 09/28/18 Unknown History Active Medications: Generic Name Dose Route Start Last Admin Trade Name Freq PRN Reason Stop Dose Admin Acetaminophen 650 mg 09/28/18 05:05 Tylenol PO Q4H PRN Pain MILD(1-3)/Fever >100.5/HOROWITZ Atorvastatin Calcium 40 mg 09/28/18 22:00 09/29/18 21:59 Lipitor PO 40 mg QHS ZONIA Administration Dextrose 50 ml 09/28/18 06:21 D50w (25gm) Syringe IV PRN PRN Hypoglycemia Diphenhydramine HCl 25 mg 09/28/18 05:08 Benadryl IV Q8H PRN Itching Enoxaparin Sodium 30 mg 09/28/18 10:00 09/29/18 10:43 Lovenox SUB-Q 30 mg QDAY ZONIA Administration Sodium Bicarbonate 150 meq/ 1,150 mls @ 100 mls/hr 09/28/18 14:00 09/29/18 21:58 Dextrose IV 100 mls/hr DIRECT ZONIA Administration Insulin Human Lispro 0 unit 09/29/18 07:30 09/29/18 21:59 Humalog SUB-Q 4 unit ACHS ZONIA Administration Protocol Magnesium Hydroxide 30 ml 09/28/18 05:05 Milk Of Magnesia PO Q4H PRN Constipation Methylprednisolone Sodium Succinate 125 mg 09/28/18 12:00 09/30/18 06:08 Solu-Medrol IV 125 mg Q6HR ZONIA Administration Ondansetron HCl 4 mg 09/28/18 05:05 Zofran IV Q8H PRN Nausea And Vomiting Pantoprazole Sodium 40 mg 09/28/18 10:00 09/29/18 10:42 Protonix PO 40 mg DAILY ZONIA Administration Sodium Chloride 10 ml 09/28/18 10:00 09/29/18 21:58 Sodium Chloride Flush Syringe 10 Ml IV 10 ml BID ZONIA Administration Sodium Chloride 10 ml 09/28/18 05:05 Sodium Chloride Flush Syringe 10 Ml IV PRN PRN LINE FLUSH
[2018-09-30] MEDS: HumaLOG SUB-Q SCH ×2 (10:13→11:35)
--- NOTE | 2018-09-30 10:57 | Discharge Summary ---
Providers - Providers Date of Admission: 09/28/18 04:15 Date of discharge: 09/30/18 Attending physician: STEPHANIE CAMACHO 09/28/18 12:18 Consult to Physician [CONS] Routine Comment: Consulting Provider: ADELINA SANDRA Physician Instructions: Reason For Exam: ARF Primary care physician: AZUCENA GONSALES MD Hospitalization Condition: Fair Hospital course: Patient is a 63-year-old male with previous stroke, diabetes, hypertension, PAD, left hearing loss who presented to the ER with complaint of lip swelling. Pt stated that he noted his face was swollen when he woke up at night. He stated that he started taking Lisinopril 2 weeks earlier. He reported difficulty speaking. He denies SOB, cough, or chest pain or palpitation, he states that he took Benadryl and decided to come to the ER for evaluation. Pt was seen and evaluated, diagnosed with angioedema due to Lisinopril. He was also diagnosed with acute kidney injury with Cr of 2.7. He was started on solu-medrol, Benadryl , Pepcid , iv fluids and admitted. Swelling improved on medications. Patient was evaluated by Nephrology for MELISSA. Creatinine improved. He was re-evaluated on 09/30/18, then swelling had subsided so was discharged home on 09/30/18. Total time spent on discharge, 32 mins Disposition: DC-01 TO HOME OR SELFCARE - Discharge Diagnoses (1) Vasomotor nephropathy Status: Acute (2) Acute kidney injury Status: Acute (3) HTN (hypertension) Status: Acute Qualifiers: Hypertension type: essential hypertension Qualified Code(s): I10 - Essential (primary) hypertension (4) Angioedema Status: Acute (5) Diabetes mellitus type 2 in nonobese Status: Acute (6) Hyperlipidemia Status: Acute Core Measure Documentation - Palliative Care Palliative Care/ Comfort Measures: Not Applicable - Core Measures Any of the following diagnoses?: none Exam - Constitutional Vitals: Temp Pulse Resp BP Pulse Ox 97.2 F L 73 16 147/82 98 09/30/18 08:19 09/30/18 08:19 09/30/18 08:19 09/30/18 08:19 09/30/18 08:19 Plan Activity: no restrictions Diet: low fat, low cholesterol, low salt, renal Additional Instructions: 1.Follow up with PCP in 1 week. 2.Follow up with Dr. Ta in 3-5 days Follow up with: AZUCENA GONSALES MD [Primary Care Provider] - 7 Days Prescriptions: hydrALAZINE [Apresoline TAB] 25 mg PO Q8HR #90 tab diphenhydrAMINE [Benadryl CAP] 25 mg PO Q8HR #15 capsule glipiZIDE [Glucotrol] 5 mg PO BID #60 tablet Famotidine [Pepcid] 20 mg PO BID #30 tablet Prednisone [predniSONE 5 mg (6-Day Pack, 21 Tabs)] 5 mg PO .TAPER #1 tab.ds.pk
[2018-09-30] MEDS ORDERED: LOVENOX SUB-Q SCH (11:00)
[2018-09-30] MEDS: PROTONIX PO SCH (11:34)
[2018-09-30] MEDS: SODIUM CHLORIDE FLUSH SYRINGE 10 ML IV SCH (11:34)
[2018-09-30] MEDS: LOVENOX SUB-Q SCH (11:35)
[2018-10-03 10:18] LABS: Myeloperoxidase Antibody <1.0 AI (<1.0)
== END 2018-09-30 12:34 | disposition home or self-care (01) | DRG 915 ==
LOC: ED 02:48 → 4A 04:15
PROVIDERS: ADMIT Internal Medicine; ATTEND Internal Medicine
PROC: 3E0234Z Introduction of Serum, Toxoid and Vaccine into Muscle, Percutaneous Approach (ICD-10-PCS; principal; 2018-09-28)
DX: T78.3XXA Angioneurotic edema, initial encounter (principal); N17.0 Acute kidney failure with tubular necrosis; E87.2 Acidosis; I69.354 Hemiplegia and hemiparesis following cerebral infarction affecting left non-dominant side; D64.9 Anemia, unspecified; D72.1 Eosinophilia; I10 Essential (primary) hypertension; T78.40XA Allergy, unspecified, initial encounter; E11.51 Type 2 diabetes mellitus with diabetic peripheral angiopathy without gangrene; F17.200 Nicotine dependence, unspecified, uncomplicated; H91.92 Unspecified hearing loss, left ear; Z89.021 Acquired absence of right finger(s); Z89.421 Acquired absence of other right toe(s); Z79.899 Other long term (current) drug therapy; Z72.89 Other problems related to lifestyle; Z23 Encounter for immunization
CPT/HCPCS: 36415; 71045; 76770; 80048; 81001; 82570; 82962; 83520; 83970; 84156; 85025; 86021; 86160; 86334; 86706; 86803; 90471; 90732; 96374; 96375; 99406; G0378; A9270-GY; G0009; J1650; J1815; J2930; J7070